=== PATIENT | male | born 1995 | race Caucasian/White ===

== ENCOUNTER 2025-03-12 18:34 | Emergency (ER) | payer BC, OTHER ==
[~2025-03-12] VITALS: Ht 185.4 cm; Wt 71.7 kg
[2025-03-12 18:57] VITALS: BP 129/82; TEMP 98.3; O2SAT 98
== END 2025-03-12 19:42 | disposition home or self-care (01) ==
LOC: ER 18:36
DX: S00.81XA Abrasion of other part of head, initial encounter (principal); Z91.09 Other allergy status, other than to drugs and biological substances; V43.52XA Car driver injured in collision with other type car in traffic accident, initial encounter; Y93.89 Activity, other specified; Y92.488 Other paved roadways as the place of occurrence of the external cause; Y99.8 Other external cause status